=== PATIENT | male | born 1960 | race Caucasian/White ===

== ENCOUNTER 2017-04-04 07:11 | Day surgery (SDC) | payer BC ==
[2017-04-04 07:50] LABS: HEMOGLOBIN 15.4 g/dL (14.1-18.0); LYMPH # 2.5 K/mm3 (0.7-4.5)
[2017-04-04 07:52] LABS: BUN 10 mg/dL (7-18)
[2017-04-04 07:54] LABS: GFR (ESTIMATED) 57 ML/MIN (>60)
--- NOTE | 2017-04-04 11:59 | RADIOLOGY REPORT PS360 ---
CARDIAC CATHETERIZATION DATE OF CATHETERIZATION:04/04/2017 9:43 AM PROCEDURES: 1. Left heart catheterization 2. Left ventriculogram 3. Selective coronary angiogram 4. FFR to the LAD 5. Drug-eluting stent deployment to the proximal to mid LAD 6. Angioplasty to the large first diagonal artery INDICATION FOR TEST: 1. Angina pectoris class III 2. Abnormal Myoview apical and inferior ischemia 3. Ischemic response to adenosine with an FFR on the LAD of 0.64 4. Coronary artery disease Informed consent was obtained prior to the procedure. COMPLICATIONS: None ESTIMATED BLOOD LOSS: Less than 10 ml. TECHNIQUE: One percent lidocaine was used to anesthetize the right groin. The right femoral artery was accessed via the Seldinger technique. A 4-Monegasque sheath was placed in the right femoral artery. A JL 4 JR4 catheter were used for the diagnostic left heart catheterization left ventriculogram and selective coronary angiogram. Patient had an inferior apical ischemic Myoview which could be explained by the large LAD that wraps the apex and supplies a portion of the inferior wall. The right coronary artery was a vestigial vessel and clinically insignificant. Because of the abnormal Myoview with intermediate stenosis accompanying an abnormal Myoview and is symptomatic patient was decided to perform definitive FFR. 9000 units of heparin was administered intravenously and the 4 Monegasque sheath was exchanged for a 6 Monegasque sheath. The JR4 guide catheter was placed in the ascending aorta and an FFR wire was normalized. Upon passage of the FFR wire the FFR dropped to 0.84. Despite this adenosine was still infused and after the FFR index dropped to 0.62 test was stopped. No spasm was identified distally and in this test was a diagnostic yield. Because of this a 3 mm x 15 mm resolute stent was deployed at 12 sushant. Distally there was a hazy stenosis after the procedure which did not reduce with 600 mcg of intracoronary collision. Because of this an additional 3 mm x 12 mm resolute stent was deployed at 12 sushant overlapping the distal aspect of the first stent. The defect was reduced with excellent angiographic results. The BMW wire was then pulled back placed into the large diagonal artery and a 2 mm x 6 mm balloon was deployed at 14 sushant for 30 seconds further reducing this jailed stenosis. At the end of the procedure there are excellent angiographic results with ROBERTO-3 flow down the vessel before and after the procedure. The apparatus was removed the groin is reprepped closure changed sheath was removed good hemostasis was achieved using Perclose device. The closing ACT was 226 seconds therefore an additional 3000 units of heparin was administered intravenously. Patient received 60 mg of Effient toward the end of the interventional procedure. ANGIOGRAPHIC RESULTS: 1. The left main artery normal 2. The left anterior descending artery has a proximal mostly eccentric 50% stenosis in between the first septal executive vice president business development and first diagonal artery. Distally there are mild luminal irregularities 3. The circumflex artery is a large dominant vessel with mild luminal irregularities 4. The right coronary artery is a small vestigial vessel 5. The MA ventriculogram reveals normal ejection fraction 65% 6. The left ventricular end-diastolic pressure less than 10 mmHg IMPRESSION: 1. Angiographic indeterminate disease in the proximal LAD 2. Severely ischemic response to adenosine involving the LAD 3. Vessel stenting of the proximal to mid LAD hemodynamically severe disease reduced to 0% with 2 drug-eluting stents as described above with successful angioplasty to the first diagonal artery 4. Normal ejection fraction 5. Normal left ventricular end-diastolic pressure PLAN: 1. Effient and aspirin 2. LDL less than 70 3. Tobacco cessation
[2017-04-04 15:27] VITALS: BP 160/91
== END 2017-04-04 15:29 | disposition home or self-care (01) ==
LOC: CATHLAB 07:11
PROVIDERS: Internal Medicine
PROC: 027035Z Dilation of Coronary Artery, One Artery with Two Drug-eluting Intraluminal Devices, Percutaneous Approach (ICD-10-PCS; 2017-04-04)
PROC: B2111ZZ Fluoroscopy of Multiple Coronary Arteries using Low Osmolar Contrast (ICD-10-PCS; 2017-04-04)
PROC: B2151ZZ Fluoroscopy of Left Heart using Low Osmolar Contrast (ICD-10-PCS; 2017-04-04)
PROC: 4A033BC Measurement of Arterial Pressure, Coronary, Percutaneous Approach (ICD-10-PCS; 2017-04-04)
PROC: 4A023N7 Measurement of Cardiac Sampling and Pressure, Left Heart, Percutaneous Approach (ICD-10-PCS; principal; 2017-04-04 12:15)
DX: I25.119 Atherosclerotic heart disease of native coronary artery with unspecified angina pectoris (principal); Z72.0 Tobacco use; R94.39 Abnormal result of other cardiovascular function study; I25.9 Chronic ischemic heart disease, unspecified; I10 Essential (primary) hypertension
CPT/HCPCS: C1725; C1760; C1769; C1876; C1894; J0153; J1644; Q9967